=== PATIENT | female | born 1990 | race Caucasian/White ===

== ENCOUNTER 2017-09-19 12:55 | Emergency (ER) | payer OTHER ==
[2017-09-19 12:56] VITALS: BMI 19.0
[2017-09-19 13:26] VITALS: TEMP 99; O2SAT 100
--- NOTE | 2017-09-19 13:54 | ED PDOC ---
Arrival/HPI - General Chief Complaint: Female Genitourinary Time Seen by Provider: 09/19/17 13:33 Historian: Patient - History of Present Illness Narrative History of Present Illness (Text): 09/19/17 13:50 Pt p/w + < 1 day onset of vaginal spotting, lower pelvic/right sided cramps feeling like her menstrual cycle is coming; pt states + slightly decr appetite, pt recently checked her preg status (09/17) and noted it to be positive; pt states no fever/chills/sweats, no cp/sob/palpitations, no upper abd pain, no n/v , no numbness/tingling, no urinary/bowel changes, no dysuria, no fall/trauma/ sick contact, no travel; pt states no heavy vaginal bleeding is noted; pt denied rashes; pt denied LOC, no lightheadedness/dizziness pt is here for further eval pt's without other complaints. LMP: 08/21/2017 Time/Duration: 24 hours Symptom Onset: Sudden Symptom Course: Improving Quality: Tightness, Cramping Severity Level: 6, Moderate Activities at Onset: Rest Context: Home Past Medical History - Provider Review Nursing Documentation Reviewed: Yes - Travel History Have you recently traveled outside [place] w/in the past 3 mons?: No - Past History Past History: No Previous - Infectious Disease Hx of Infectious Diseases: None - Reproductive Menopause: No Currently : Yes - Cardiac Hx Cardiac Disorders: Yes Other/Comment: tricuspid regurgitation - Psychiatric Hx Psychophysiologic Disorder: No Hx Substance Use: No - Anesthesia Hx Anesthesia: No Family/Social History - Physician Review Nursing Documentation Reviewed: Yes Family/Social History: No Known Family HX Smoking Status: Never Smoked Hx Alcohol Use: No Hx Substance Use: No Hx Substance Use Treatment: No Allergies/Home Meds Allergies/Adverse Reactions: Allergies pineapple Allergy (Verified 01/16/16 14:01) ANGIOEDEMA Home Medications: Home Meds Medication Instructions Recorded Confirmed Multivit/Folic Acid/I 0 tab PO DAILY 09/19/17 09/19/17 [ Plus] Review of Systems - Review of Systems Constitutional: Normal Eyes: Normal ENT: Normal Respiratory: Normal Cardiovascular: Normal Gastrointestinal: Abdominal Pain (right lower/pelvic region pain) Genitourinary Female: Vaginal Bleeding. absent: Dysuria, Frequency, Vaginal Discharge Musculoskeletal: Normal Skin: Normal Neurological: Normal Endocrine: Normal Hemo/Lymphatic: Normal Physical Exam Vital Signs Reviewed: Yes Vital Signs Temp Pulse Resp BP Pulse Ox 09/19/17 15:27 86 18 122/64 100 09/19/17 13:22 99 F 80 20 127/81 100 Temperature: Afebrile Blood Pressure: Normal Pulse: Regular Respiratory Rate: Normal Appearance: Positive for: Well-Appearing, Non-Toxic, Comfortable, Other ( resting in bed, alert/awake, GCS = 15, oriented x 3, cooperative, follows command with ease) Pain Distress: None Mental Status: Positive for: Alert and Oriented X 3 - Systems Exam Head: Present: Atraumatic, Normocephalic Pupils: Present: PERRL, Other (no nystagmus, no photophobia, sclera anicteric) Extroacular Muscles: Present: EOMI Conjunctiva: Present: Normal Ears: Present: Normal Mouth: Present: Moist Mucous Membranes, Normal Teeth, Other (no drooling/stridor , intact dentitions) Pharnyx: Present: Normal Nose (External): Present: Atraumatic Nose (Internal): Present: Normal Inspection Neck: Present: Normal Range of Motion, Trachea Midline, Other (intact ROM, no nuchal rigidity, no meningeal signs, no step off). No: Meningeal Signs, MIDLINE TENDERNESS Respiratory/Chest: Present: Clear to Auscultation, Good Air Exchange. No: Respiratory Distress, Accessory Muscle Use Cardiovascular: Present: Regular Rate and Rhythm, Normal S1, S2. No: Murmurs, Tachycardic Abdomen: Present: Normal Bowel Sounds, Other (well nourished female, faintly right lower/pelvic region tender, NO mcburney's point tenderness, no obturator/ psoas sign; no masses/rebound/guarding/rigidity) Genitourinary/Pelvic Exam: Present: Other (deferred; pt will see her OB) Back: Present: Normal Inspection. No: CVA Tenderness, Midline Tenderness Upper Extremity: Present: Normal Inspection, Normal ROM, NORMAL PULSES, Neurovascularly Intact, Capillary Refill < 2s Lower Extremity: Present: Normal Inspection, NORMAL PULSES, Normal ROM, Neurovascularly Intact, Capillary Refill < 2 s, Other (+ ambulatory, neurovasc intact b/l, strength 5/5 grossly intact in all limbs) Neurological: Present: GCS=15, CN II-XII Intact, Speech Normal Skin: Present: Warm, Normal Color, Other (cap refill < 1sec, no ulcerations, no petechiae no rashes) Psychiatric: Present: Alert, Oriented x 3 Medical Decision Making ED Course and Treatment: 09/19/17 13:52 Impression: vaginal bleeding, right sided pain i have consider all the differential diagnosis regarding pt's chief medical complaints/clinical findings, including but are not limited to: vaginal bleeding A/P: vaginal bleeding, right sided pain - us - ua - labs - observe - supportive care 09/19/2017 14:54 Transvaginal Ultrasound IMPRESSION: 1. 1-2 mm tiny cystic area in the anterior superior endometrium is non specific and with the stated clinical history of elevated B-HCG may represent an early gestational sac. Clinical and imaging follow-up is recommended to assess viable . 2. Suspect 2.6 cm dermoid cyst in the right ovary. Dictator: Mony Camp MD 09/19/17 1530 pt remained comfortable pt is not in any distress pt is made aware of her medical results pt is encouraged no sex, no heavy lifting/prolonged standing pt is encouraged hydration pt is educated on symptoms of appy and to return to ED immediately if such symptoms occur (i.e right lower abd pain/persistent, vomiting/nausea, fever, bloody diarrhea, etc) pt will f/u as directed pt will be discharged home Re-evaluation Time: 15:46 Reassessment Condition: Improved - Lab Interpretations Lab Results: 09/19/17 13:40 09/19/17 13:40 Lab Results 09/19/17 15:15: Blood Type Confirm B POSITIVE 09/19/17 13:40: WBC 8.2, RBC 4.49, Hgb 13.8, Hct 40.5, MCV 90.2, MCH 30.7, MCHC 34.1, RDW 12.5, Plt Count 277, MPV 9.5, Gran % 67.1, Lymph % (Auto) 26.4, [place] % (Auto) 5.9, Eos % (Auto) 0.5 L, Baso % (Auto) 0.1, Gran # 5.47, Lymph # (Auto ) 2.2, [place] # (Auto) 0.5, Eos # (Auto) 0.0, Baso # (Auto) 0.01 09/19/17 13:40: Sodium 141, Potassium 4.4, Chloride 104, Carbon Dioxide 26, Anion Gap 15, BUN 5 L, Creatinine 0.7, Est GFR ( Amer) > 60, Est GFR (Non -Af Amer) > 60, Random Glucose 97, Calcium 10.1 09/19/17 13:40: Blood Type B POSITIVE, Antibody Screen Negative, BBK History Checked No verified bt 09/19/17 13:40: Beta HCG, Quant 10.25 H 09/19/17 13:40: Urine Color Light yellow, Urine Appearance Clear, Urine pH 6.5, Ur Specific [place] <= 1.005, Urine Protein Negative, Urine Glucose (UA) Negative, Urine Ketones Negative, Urine Blood Negative, Urine Nitrate Negative, Urine Bilirubin Negative, Urine Urobilinogen 0.2, Ur Leukocyte Esterase Negative I have reviewed the lab results: Yes Interpretation: All labs normal (+ Beta quant) - RAD Interpretation Narrative RAD Interpretations (Text): 09/19/17 15:46 HISTORY: pt at home preg 09/17, negative here, r/o ectopic COMPARISON: None available. TECHNIQUE: Transvaginal pelvic ultrasound was performed. FINDINGS: UTERUS: Measures 7.9 x 4.0 x 4.1 cm. Retroverted and normal in size. There is normal myometrial echotexture No fibroid or other mass lesion seen. ENDOMETRIUM: Measures 8 mm in diameter. There is a tiny 1-2 mm cystic area in the anterior superior endometrium. CERVIX: No cervical abnormality identified. RIGHT OVARY: Measures 4.0 x 2.8 cm. No solid mass. Normal flow. There is a 2.6 x 2.2 x 1.5 cm heterogeneous mass with differential fluid level and eccentric echogenic area without central flow on color Doppler imaging. LEFT OVARY: Measures 3.6 x 1.7 x 2.4 cm. No solid mass. Normal flow. FREE FLUID: There is small amount of free fluid in the pelvis. OTHER FINDINGS: None. IMPRESSION: 1. 1-2 mm tiny cystic area in the anterior superior endometrium is non specific and with the stated clinical history of elevated B-HCG may represent an early gestational sac. Clinical and imaging follow-up is recommended to assess viable . 2. Suspect 2.6 cm dermoid cyst in the right ovary. Radiology Orders: 09/19/17 13:49 OB TRANSVAGINAL [US] Routine Vocational Counselor: Radiologist Disposition/Present on Arrival - Present on Arrival Any Indicators Present on Arrival: No History of DVT/PE: No History of Uncontrolled Diabetes: No Urinary Catheter: No History of Decub. Ulcer: No History Surgical Site Infection Following: None - Disposition Have Diagnosis and Disposition been Completed?: Yes Diagnosis: Vaginal bleeding in patient at less than 20 weeks gestation, Threatened in early Disposition: HOME/ ROUTINE Disposition Time: 15:47 Patient Plan: Discharge Condition: STABLE Discharge Instructions (ExitCare): Threatened Miscarriage, Bleeding With Print Language: ALBANIAN Additional Instructions: Make sure to see your doctor in 1-2 days DRINK PLENTY OF FLUIDS NO SEX until you are cleared by your OB doctor AVOID heavy lifting/prolonged standing tylenol for pain relief RETURN TO ED IF worse pain, cant breath, persistent vomiting, high fever >101- 102 for hours, altered behavior, unable to urinate, heavy/persistent bleeding, passing out, chest pain, or other medical emergencies Referrals: Orbotixcyndi Rosario, [Primary Care Provider] - Follow [facility] with [facility] [Outside] - Follow up with primary Forms: [employer] (Iraqi), WORK NOTE
[2017-09-19 14:02] LABS: BASO # 0.01 K/mm3 (0.0-2.0); BASO % 0.1 % (0.0-3.0); EOS % 0.5 % (1.5-5.0); GRAN # 5.47 (1.4-6.5); GRAN % 67.1 % (50.0-68.0); HEMOGLOBIN 13.8 g/dL (12.0-16.0); LYMPH # 2.2 (1.2-3.4); LYMPH % 26.4 % (22.0-35.0); MEAN CELL VOLUME 90.2 fl (80.0-105.0); MEAN CORPUSCULAR HEMOGLOBIN 30.7 pg (25.0-35.0); MEAN CORPUSCULAR HGB CONC 34.1 g/dl (31.0-37.0); MEAN PLATELET VOLUME 9.5 fl (7.0-11.0); MONO # 0.5 (0.1-0.6); MONO % 5.9 % (1.0-6.0); RBC 4.49 10^6/uL (3.5-6.1); RED CELL DISTRIBUTION WIDTH 12.5 % (11.5-14.5); WHITE BLOOD COUNT 8.2 10^3/ul (4.5-11.0)
[2017-09-19 14:03] LABS: PH,URINE 6.5 (4.7-8.0); URINE BILIRUBIN NEGATIVE (NEGATIVE); URINE BLOOD NEGATIVE (NEGATIVE); URINE GLUCOSE (UA) NEGATIVE (NEGATIVE); URINE LEUKOCYTE ESTERASE NEGATIVE Leu/uL (NEGATIVE); URINE NITRATE NEGATIVE (NEGATIVE); URINE PROTEIN NEGATIVE mg/dL (<30 mg/dL); URINE UROBILINOGEN 0.2 E.U./dL (<1 E.U./dL)
[2017-09-19 14:09] LABS: BLOOD UREA NITROGEN 5 mg/dL (7-21); CALCIUM 10.1 mg/dL (8.4-10.5); GFR AFRICAN-AMERICAN > 60; GFR NON-AFRICAN AMERICAN > 60; URINE APPEARANCE CLEAR (CLEAR); URINE COLOR LIGHT YELLOW (YELLOW)
--- NOTE | 2017-09-19 15:01 | US ---
HISTORY: pt at home preg 09/17, negative here, r/o ectopic COMPARISON: None available. TECHNIQUE: Transvaginal pelvic ultrasound was performed. FINDINGS: UTERUS: Measures 7.9 x 4.0 x 4.1 cm. Retroverted and normal in size. There is normal myometrial echotexture No fibroid or other mass lesion seen. ENDOMETRIUM: Measures 8 mm in diameter. There is a tiny 1-2 mm cystic area in the anterior superior endometrium. CERVIX: No cervical abnormality identified. RIGHT OVARY: Measures 4.0 x 2.8 cm. No solid mass. Normal flow. There is a 2.6 x 2.2 x 1.5 cm heterogeneous mass with differential fluid level and eccentric echogenic area without central flow on color Doppler imaging. LEFT OVARY: Measures 3.6 x 1.7 x 2.4 cm. No solid mass. Normal flow. FREE FLUID: There is small amount of free fluid in the pelvis. OTHER FINDINGS: None. IMPRESSION: 1. 1-2 mm tiny cystic area in the anterior superior endometrium is non specific and with the stated clinical history of elevated B-HCG may represent an early gestational sac. Clinical and imaging follow-up is recommended to assess viable . 2. Suspect 2.6 cm dermoid cyst in the right ovary.
[2017-09-19 15:28] VITALS: BP 122/64; PULSE 86; RESP 18
== END 2017-09-19 16:02 | disposition home or self-care (01) ==
LOC: ED 12:55
DX: O20.0 Threatened abortion (principal); O46.92 Antepartum hemorrhage, unspecified, second trimester; Z3A.20 20 weeks gestation of pregnancy

== ENCOUNTER 2018-02-01 21:52 | Emergency (ER) | payer MEDICAID ==
[2018-02-01 21:53] VITALS: BMI 19.0
[2018-02-01 22:03] VITALS: RESP 17
--- NOTE | 2018-02-01 22:20 | ED PDOC ---
Arrival/HPI - General Chief Complaint: Fever Time Seen by Provider: 02/01/18 22:02 Historian: Patient - History of Present Illness Narrative History of Present Illness (Text): 02/01/18 22:16 Pt is a 28 yr old female A0 5wks GA by LMP who presents with fever and productive cough x 6 days. She reports having sinus congestion and rhinorrhea initially that turned into a cough with a fever. Reports green-colored sputum and nasal d/c. Denies chest pain, shortness of breath, chills, nausea, vomiting , diarrhea, vaginal bleeding, or any other complaint. Time/Duration: 24 hours Symptom Onset: Gradual Symptom Course: Worsening Quality: Pressure Severity Level: 3 Activities at Onset: Rest, Sleeping Context: Home Past Medical History - Provider Review Nursing Documentation Reviewed: Yes - Travel History Have you recently traveled outside [place] w/in the past 3 mons?: No - Past History Past History: No Previous - Infectious Disease Hx of Infectious Diseases: None - Cardiac Hx Cardiac Disorders: Yes Other/Comment: tricuspid regurgitation - Pulmonary Hx Asthma: Yes - Psychiatric Hx Psychophysiologic Disorder: No Hx Substance Use: No - Surgical History Other/Comment: endoscopy 2014 - Anesthesia Hx Anesthesia: No Family/Social History - Physician Review Nursing Documentation Reviewed: Yes Family/Social History: Unknown Family HX Smoking Status: Never Smoked Hx Alcohol Use: No Hx Substance Use: No Hx Substance Use Treatment: No Allergies/Home Meds Allergies/Adverse Reactions: Allergies pineapple Allergy (Verified 02/01/18 22:03) ANGIOEDEMA Home Medications: Home Meds Medication Instructions Recorded Confirmed Multivit/Folic Acid/I 0 tab PO DAILY 09/19/17 02/01/18 [ Plus] Review of Systems - Review of Systems Systems not reviewed;Unavailable: Acuity of Condition Constitutional: Normal, Fatigue, Fevers Eyes: Normal ENT: Normal. absent: Hearing Changes Respiratory: Normal, Cough, Sputum. absent: SOB, Wheezing Cardiovascular: Normal. absent: Chest Pain, Palpitations Gastrointestinal: Normal, Diarrhea. absent: Abdominal Pain Genitourinary Female: Normal. absent: Dysuria, Frequency, Hematuria, Urine Output Changes Musculoskeletal: Normal Skin: Normal. absent: Rash Neurological: Normal. absent: Headache, Dizziness Endocrine: Normal Hemo/Lymphatic: Normal Psychiatric: Normal Physical Exam Vital Signs Reviewed: Yes Vital Signs Temp Pulse Resp BP Pulse Ox 02/01/18 23:27 98.3 F 102 H 17 130/85 99 02/01/18 22:03 99.8 F H 118 H 17 145/85 98 Temperature: Febrile Blood Pressure: Normal Pulse: Tachycardic Respiratory Rate: Normal Appearance: Positive for: Well-Appearing, Non-Toxic, Comfortable Pain Distress: Mild Mental Status: Positive for: Alert and Oriented X 3 - Systems Exam Head: Present: Atraumatic, Normocephalic Pupils: Present: PERRL Extroacular Muscles: Present: EOMI Conjunctiva: Present: Normal Mouth: Present: Moist Mucous Membranes Pharnyx: Present: ERYTHEMA. No: EXUDATE, TONSILS ENLARGED Neck: Present: Normal Range of Motion Respiratory/Chest: Present: Clear to Auscultation, Good Air Exchange. No: Respiratory Distress, Accessory Muscle Use, Wheezes Cardiovascular: Present: Regular Rate and Rhythm, Normal S1, S2. No: Murmurs Abdomen: Present: Normal Bowel Sounds. No: Tenderness, Distention, Peritoneal Signs Back: Present: Normal Inspection Upper Extremity: Present: Normal Inspection. No: Cyanosis, Edema Lower Extremity: Present: Normal Inspection. No: Edema Neurological: Present: GCS=15, CN II-XII Intact, Speech Normal Skin: Present: Warm, Dry, Normal Color. No: Rashes Psychiatric: Present: Alert, Oriented x 3, Normal Insight, Normal Concentration Medical Decision Making ED Course and Treatment: 02/01/18 22:19 Impression Pt is a 28 yr old female A0 5wks GA by LMP who presents with fever and productive cough x 6 days. Plan Labs UA beta hcg levels Progress note 02/01/18 22:51 Labs wnl Azithromycin 500mg po STAT advised pt to be treated empirically for bacterial bronchitis with Z-Sandro Advised to take 4 more doses to complete; pt expressed concern for thrush development as she experienced that with pervious abx; script for probiotics given; acidophilus and similar probiotics are not given a category rating for pergnancy therefore safety is unknown; informed pt of this; encouraged her to speak with the pharmacist f/u with PMD start care in next week; VSS on dc - Lab Interpretations Lab Results: 02/01/18 22:22 02/01/18 22:22 Lab Results 02/01/18 22:22: Grp A Beta Strep Ag Negative 02/01/18 22:22: Influenza Typ A,B (EIA) Negative for flu a/b 02/01/18 22:22: Beta HCG, Quant 4885.10 H 02/01/18 22:22: Sodium 136, Potassium 3.6, Chloride 99, Carbon Dioxide 23, Anion Gap 17, BUN 3 L, Creatinine 0.6 L, Est GFR ( Amer) > 60, Est GFR ( Non-Af Amer) > 60, Random Glucose 101, Calcium 9.3, Total Bilirubin 0.5, AST 33 , ALT 30, Alkaline Phosphatase 59, Total Protein 8.5 H, Albumin 4.8, Globulin 3.7, Albumin/Globulin Ratio 1.3 02/01/18 22:22: WBC 7.5, RBC 4.34, Hgb 12.9, Hct 37.3, MCV 85.9 D, MCH 29.7, MCHC 34.6, RDW 12.3, Plt Count 300, MPV 8.9, Gran % 63.9, Lymph % (Auto) 24.6, [place] % (Auto) 10.7 H, Eos % (Auto) 0.4 L, Baso % (Auto) 0.4, Gran # 4.80, Lymph # (Auto) 1.9, [place] # (Auto) 0.8 H, Eos # (Auto) 0.0, Baso # (Auto) 0.03 02/01/18 22:22: Urine Color Yellow, Urine Appearance Clear, Urine pH 6.5, Ur Specific [place] <= 1.005, Urine Protein Negative, Urine Glucose (UA) Negative, Urine Ketones 15 H, Urine Blood Trace-intact H, Urine Nitrate Negative, Urine Bilirubin Negative, Urine Urobilinogen 0.2, Ur Leukocyte Esterase Negative, Urine RBC 1 - 3, Urine WBC 1 - 3, Ur Epithelial Cells 6 - 8, Urine Bacteria Many , Urine HCG, Qual Cancelled - Medication Orders Current Medication Orders: Discontinued Medications Azithromycin (Zithromax) 500 mg PO STAT STA PRN Reason: Protocol Stop: 02/01/18 22:31 Last Admin: 02/01/18 22:44 Dose: 500 mg Disposition/Present on Arrival - Present on Arrival Any Indicators Present on Arrival: Yes History of DVT/PE: No History of Uncontrolled Diabetes: No Urinary Catheter: No History of Decub. Ulcer: No History Surgical Site Infection Following: None - Disposition Have Diagnosis and Disposition been Completed?: Yes Diagnosis: Bronchitis, Disposition: HOME/ ROUTINE Disposition Time: 22:57 Patient Plan: Discharge Condition: GOOD Discharge Instructions (ExitCare): Medications and , Acute Bronchitis Additional Instructions: GOLD CARROLL, thank you for letting us take care of you today. Your provider was Cj Huynh DO and ЮЛИЯ Zafar and you were treated for BRONCHITIS DURING The emergency medical care you received today was directed at your acute symptoms. If you were prescribed any medication, please fill it and take as directed. It may take several days for your symptoms to resolve. Return to the Emergency Department if your symptoms worsen, do not improve, or if you have any other problems. PLEASE SEE AN BUSINESS PLANNING DIRECTOR FOR FOLLOW UP CARE IN THE NEXT 5 DAYS. CONTINUE TAKING TYLENOL FOR FEVER AND PAIN ONLY IF NEEDED; TRY TO AVOID IF POSSIBLE Please contact your doctor or call one of the physicians/clinics you have been referred to that are listed on the Patient Visit Information form that is included in your discharge packet. Bring any paperwork you were given at discharge with you along with any medications you are taking to your follow up visit. Our treatment cannot replace ongoing medical care by a primary care provider outside of the emergency department. Thank you for allowing the [facility] team to be part of your care today. If you had an X-Ray or CT scan: A Radiologist will review the ED reading if any change in treatment is needed we will contact you. If you had a blood, urine, or wound culture: It will take several days for the results, if any change in treatment is needed we will contact you. Prescriptions: Azithromycin [Z-Sandro] 250 mg PO DAILY 4 Days #4 tab Lactobacillus Acidophilus [Probiotic Acidophilus] 1.5 mg PO DAILY 5 Days #5 capsule Sodium Chloride Nasal [place] [[place] Nasal [place]] 45 ml NS Q2 5 Days #1 bottle Referrals: Jasmin Santamaria MD [Medical Doctor] - Follow up with primary Forms: [employer] ([place]grin)
[2018-02-01 22:35] LABS: BASO # 0.03 K/mm3 (0.0-2.0); BASO % 0.4 % (0.0-3.0); EOS % 0.4 % (1.5-5.0); GRAN # 4.8 (1.4-6.5); GRAN % 63.9 % (50.0-68.0); HEMOGLOBIN 12.9 g/dL (12.0-16.0); LYMPH # 1.9 (1.2-3.4); LYMPH % 24.6 % (22.0-35.0); MEAN CELL VOLUME 85.9 fl (80.0-105.0); MEAN CORPUSCULAR HEMOGLOBIN 29.7 pg (25.0-35.0); MEAN CORPUSCULAR HGB CONC 34.6 g/dl (31.0-37.0); MEAN PLATELET VOLUME 8.9 fl (7.0-11.0); MONO # 0.8 (0.1-0.6); MONO % 10.7 % (1.0-6.0); RBC 4.34 10^6/uL (3.5-6.1); RED CELL DISTRIBUTION WIDTH 12.3 % (11.5-14.5); WHITE BLOOD COUNT 7.5 10^3/ul (4.5-11.0)
[2018-02-01 22:38] LABS: PH,URINE 6.5 (4.7-8.0); URINE BILIRUBIN NEGATIVE (NEGATIVE); URINE BLOOD TRACE-INTACT (NEGATIVE); URINE GLUCOSE (UA) NEGATIVE (NEGATIVE); URINE LEUKOCYTE ESTERASE NEGATIVE Leu/uL (NEGATIVE); URINE PROTEIN NEGATIVE mg/dL (<30 mg/dL); URINE UROBILINOGEN 0.2 E.U./dL (<1 E.U./dL)
[2018-02-01 22:39] LABS: URINE APPEARANCE CLEAR (CLEAR); URINE COLOR YELLOW (YELLOW)
[2018-02-01 22:53] LABS: ALB/GLOB RATIO 1.3 (1.1-1.8); ALBUMIN 4.8 g/dL (3.0-4.8); CALCIUM 9.3 mg/dL (8.4-10.5); GFR AFRICAN-AMERICAN > 60; GFR NON-AFRICAN AMERICAN > 60; URINE BACTERIA MANY (NEG)
[2018-02-01 23:08] LABS: ALT/SGPT 30 U/L (7-56); AST/SGOT 33 U/L (14-36); BLOOD UREA NITROGEN 3 mg/dL (7-21)
[2018-02-01 23:28] VITALS: BP 130/85; PULSE 102; TEMP 98.3; O2SAT 99
== END 2018-02-01 23:28 | disposition home or self-care (01) ==
LOC: ED 21:52
DX: J40 Bronchitis, not specified as acute or chronic (principal); O26.891 Other specified pregnancy related conditions, first trimester; Z3A.01 Less than 8 weeks gestation of pregnancy

== ENCOUNTER 2018-08-19 17:57 | Emergency (ER) | payer MEDICAID ==
[2018-08-19 18:02] VITALS: BMI 23.3
[2018-08-19] MEDS ORDERED: Albuterol 0.083% Inhal Sol (2.5 mg/3 mL) UD IH STA (18:30)
--- NOTE | 2018-08-19 18:46 | ED PDOC ---
Arrival/HPI - General Chief Complaint: Cough, Cold, Congestion Time Seen by Provider: 08/19/18 18:14 Historian: Patient - History of Present Illness Narrative History of Present Illness (Text): 08/19/18 18:47 28 yo F w/ PMH of asthma, who is 34 weeks complains of cough x 3 weeks with R mid back pain x 2 days, worse with movement and with coughing. Otherwise: (-) fever, (-) chills, (-) SOB, (-) chest pain, (-) dyspnea, (-) hemoptysis, (- ) upper back pain, (-) abdominal pain, (-) vomiting, (-) urinary symptoms, (-) travel, (-) recent prolonged immobility. Past Medical History - Past History Past History: No Previous - Infectious Disease Hx of Infectious Diseases: None - Reproductive Currently : Yes - Cardiac Hx Cardiac Disorders: Yes Hx Heart Murmur: Yes Other/Comment: tricuspid regurgitation - Pulmonary Hx Asthma: Yes - Psychiatric Hx Psychophysiologic Disorder: No Hx Substance Use: No - Surgical History Other/Comment: endoscopy 2013 - Anesthesia Hx Anesthesia: No Family/Social History Family/Social History: No Known Family HX Smoking Status: Never Smoked Hx Alcohol Use: No Hx Substance Use: No Hx Substance Use Treatment: No Allergies/Home Meds Allergies/Adverse Reactions: Allergies pineapple Allergy (Verified 02/01/18 22:03) ANGIOEDEMA Home Medications: Home Meds Medication Instructions Recorded Confirmed Multivit/Folic Acid/I 0 tab PO DAILY 09/19/17 02/01/18 [ Plus] Review of Systems - Review of Systems Constitutional: absent: Fatigue, Fevers Respiratory: Cough. absent: SOB, Sputum Cardiovascular: absent: Chest Pain, Palpitations Gastrointestinal: absent: Abdominal Pain, Nausea, Vomiting Genitourinary Female: absent: Dysuria, Hematuria, Vaginal Bleeding Musculoskeletal: Back Pain. absent: Arthralgias, Neck Pain Neurological: absent: Headache, Dizziness Physical Exam Vital Signs Temp Pulse Resp BP Pulse Ox 08/19/18 18:10 98.0 F 102 H 18 120/67 98 Temperature: Afebrile Blood Pressure: Normal Pulse: Regular Respiratory Rate: Normal Appearance: Positive for: Well-Appearing, Non-Toxic, Comfortable Pain Distress: None Mental Status: Positive for: Alert and Oriented X 3 - Systems Exam Head: Present: Atraumatic, Normocephalic Pupils: Present: PERRL Extroacular Muscles: Present: EOMI Conjunctiva: Present: Normal Mouth: Present: Moist Mucous Membranes Neck: Present: Normal Range of Motion Respiratory/Chest: Present: Clear to Auscultation, Good Air Exchange, Wheezes (+faint expiratory wheeze to the RLL), Rhonchi (+rhonchi at the bases). No: Respiratory Distress, Accessory Muscle Use Cardiovascular: Present: Regular Rate and Rhythm, Normal S1, S2. No: Murmurs Abdomen: No: Tenderness, Distention, Peritoneal Signs Back: Present: Normal Inspection Upper Extremity: Present: Normal Inspection. No: Cyanosis, Edema Lower Extremity: Present: Normal Inspection. No: Edema Neurological: Present: GCS=15, CN II-XII Intact, Speech Normal Skin: Present: Warm, Dry, Normal Color. No: Rashes Psychiatric: Present: Alert, Oriented x 3, Normal Insight, Normal Concentration Medical Decision Making ED Course and Treatment: 08/19/18 18:43 Plan : - Albuterol neb - Zithromax PO - UA - Urine cx 08/19/18 21:00 Flu : (-) UA : (+) UTI On reevaluation, patient reports no CP, SOB or abdominal pain. On exam, patient remains awake alert and oriented 3 in no acute distress. Diagnostic results d/w the patient. Given macrobid po for UTI. Advised to follow up with primary care physician in 1-2 days without fail. Advised to take medication as prescribed. Return to the emergency room at any time for any new or worsening symptoms. Patient states she fully agrees with and understands discharge instructions. States that she agrees with the plan and disposition. Verbalized and repeated discharge instructions and plan. I have given the patient opportunity to ask any additional questions. - Medication Orders Current Medication Orders: Discontinued Medications Albuterol Sulfate (Albuterol 0.083% Inhal Cass (2.5 Mg/3 Ml) Ud) 2.5 mg IH STAT STA Stop: 08/19/18 18:31 Azithromycin (Zithromax) 500 mg PO STAT STA; Protocol Stop: 08/19/18 18:32 - PA / [employer] / Resident Statement MD/DO has reviewed & agrees with the documentation as recorded. Disposition/Present on Arrival - Present on Arrival Any Indicators Present on Arrival: No History of DVT/PE: No History of Uncontrolled Diabetes: No Urinary Catheter: No History of Decub. Ulcer: No History Surgical Site Infection Following: None - Disposition Have Diagnosis and Disposition been Completed?: Yes Diagnosis: UTI (urinary tract infection), Asthmatic bronchitis Disposition: HOME/ ROUTINE Disposition Time: 21:00 Patient Plan: Discharge Condition: STABLE Discharge Instructions (ExitCare): Urinary Tract Infections in Adults, Asthma in Adults, Acute Bronchitis Additional Instructions: Thank you for letting us take care of you today. You were treated for asthmatic bronchitis, UTI. The emergency medical care you received today was directed at your acute symptoms. If you were prescribed any medication, please fill it and take as directed. It may take several days for your symptoms to resolve. Return to the Emergency Department if your symptoms worsen, do not improve, or if you have any other problems. Please contact your doctor in 2 days for re-evaluation and follow up. Bring any paperwork you were given at discharge with you along with any medications you are taking to your follow up visit. Our treatment cannot replace ongoing medical care by a primary care provider (PCP) outside of the emergency department. Thank you for allowing the [facility] team to be part of your care today. If you had a urine culture: It will take several days for the results, if any change in treatment is needed we will contact you. Prescriptions: Albuterol HFA [Ventolin HFA 90 mcg/actuation (8 g)] 2 puff IH U3AISIE #1 puff Albuterol 0.083% [Albuterol Sulfate 3 Ml] 3 ml IH Q4 #100 neb Azithromycin [Zithromax] 250 mg PO DAILY #4 tab Nebulizer [Aeroeclipse II] 1 each MC DAILY #1 each Nitrofurantoin Macrocrystals [Macrobid] 100 mg PO BID #20 cap Referrals: FAMILY PROVIDER,NO [Primary Care Provider] - Follow up with primary Forms: [employer] (Gu[place]ian), WORK NOTE
[2018-08-19 19:58] LABS: URINE BILIRUBIN NEGATIVE (NEGATIVE); URINE BLOOD NEGATIVE (NEGATIVE); URINE GLUCOSE (UA) NEGATIVE (NEGATIVE); URINE LEUKOCYTE ESTERASE TRACE Leu/uL (NEGATIVE); URINE PROTEIN NEGATIVE mg/dL (<30 mg/dL); URINE UROBILINOGEN 0.2 E.U./dL (<1 E.U./dL)
[2018-08-19 19:59] LABS: URINE APPEARANCE CLEAR (CLEAR); URINE COLOR YELLOW (YELLOW)
[2018-08-19 21:35] VITALS: BP 112/82; PULSE 94; RESP 19; TEMP 99; O2SAT 100
== END 2018-08-19 21:34 | disposition home or self-care (01) ==
LOC: ED 17:57
DX: O23.43 Unspecified infection of urinary tract in pregnancy, third trimester (principal); O99.513 Diseases of the respiratory system complicating pregnancy, third trimester; J45.909 Unspecified asthma, uncomplicated; Z3A.34 34 weeks gestation of pregnancy